=== PATIENT | female | born 1975 | race Caucasian/White ===

== ENCOUNTER 2016-11-20 15:16 | Emergency (ER) | payer SELFPAY ==
[2016-11-20 19:26] LABS: HEMOGLOBIN 14.6 gm/dl (12.3-15.3); RED BLOOD COUNT 5.27 M/UL (4.00-5.10); WHITE BLOOD COUNT 4.9 K/UL (4.5-11.0)
[2016-11-20 20:00] LABS: BUN/CREATININE RATIO 15 (0-10)
== END 2016-11-20 21:05 | disposition home or self-care (01) ==
LOC: ER1 15:16
PROVIDERS: Physician Assistant Medical
DX: J42 Unspecified chronic bronchitis (principal); Z90.49 Acquired absence of other specified parts of digestive tract
CPT/HCPCS: 36415; 71020; 80053; 84484; 85025; 87081; 87880; 94640; 94664; 99283

== ENCOUNTER 2016-11-24 13:09 | Emergency (ER) | payer SELFPAY | END 2016-11-24 16:46 | disposition home or self-care (01) | LOC: ER1 13:09 | DX: J11.1 Influenza due to unidentified influenza virus with other respiratory manifestations (principal); R73.9 Hyperglycemia, unspecified | CPT/HCPCS: 82962; 84703; 99283 ==

== ENCOUNTER 2020-10-28 02:23 | Inpatient (IN) | payer OTHER ==
[~2020-10-28] VITALS: Ht 180.3 cm; Wt 164.2 kg
[~2020-10-28 02:23] MED LIST: ANTIVERT 25MG T25 MG PO; NAPROSYN500 MG PO
[2020-10-28 02:55] LABS: HEMOGLOBIN 15.4 gm/dl (12.3-15.3); RED BLOOD COUNT 5.38 M/UL (4.00-5.10); WHITE BLOOD COUNT 5.4 K/UL (4.5-11.0)
[2020-10-28 03:23] LABS: BUN/CREATININE RATIO 15 (0-10)
[2020-10-28] MEDS ORDERED: METFORMIN ER G500 MG PO (10:23)
[2020-10-28] MEDS ORDERED: VITAMIN D3250 MC2 PO (10:24)
[2020-10-28] MEDS ORDERED: ASPIRIN CHEWABL81 MG PO (10:25)
[2020-10-29 02:51] LABS: HEMOGLOBIN 15.1 gm/dl (12.3-15.3); RED BLOOD COUNT 5.3 M/UL (4.00-5.10); WHITE BLOOD COUNT 4.4 K/UL (4.5-11.0)
[2020-10-29 03:13] LABS: BUN/CREATININE RATIO 21 (0-10)
[2020-10-29] MEDS ORDERED: ZINC50 M1 PO (09:46)
[2020-10-29] MEDS ORDERED: DEXAMETHASONE6 MG PO (09:47)
[2020-10-29] MEDS ORDERED: VITAMIN C500 M4 PO (09:47)
--- NOTE | 2020-10-29 10:15 | NUR ---
PATIENT DECLINED AM BLOOD GLUCOSE CHECK, STATED SHE IS BEING DISCHARGED.
== END 2020-10-29 13:16 | disposition home or self-care (01) | DRG 177 ==
LOC: ER1 02:23 → CDU 04:19 → M/S 04:19
PROVIDERS: ADMIT Internal Medicine
PROC: XW033E5 Introduction of Remdesivir Anti-infective into Peripheral Vein, Percutaneous Approach, New Technology Group 5 (ICD-10-PCS; principal; 2020-10-28)
DX: U07.1 COVID-19 (principal); J12.82 Pneumonia due to coronavirus disease 2019; J96.01 Acute respiratory failure with hypoxia; E66.01 Morbid (severe) obesity due to excess calories; E11.9 Type 2 diabetes mellitus without complications; Z90.49 Acquired absence of other specified parts of digestive tract; Z87.891 Personal history of nicotine dependence; R00.0 Tachycardia, unspecified; R51.9 Headache, unspecified
CPT/HCPCS: 36415; 36600; 71045; 80053; 82550; 82553; 82728; 82803; 82962; 83605; 83615; 84484; 85025; 85379; 86140; 93005; 99285; J1100; J1650; J7030